=== PATIENT | female | born 1985 | race Caucasian/White ===

== ENCOUNTER → 2016-06-02 | Outpatient (REF) | payer BC, OTHER ==
[~2016-06-02] MED LIST: /ANUSHCSU PR; ACET50TA PO; DOCU10ELUD PO; IBUP600T26 PO; MOM30SS PO; PRENTAB74 PO
[2016-06-02 13:38] LABS: MEAN CORPUSCULAR HEMOGLOBIN 29.7 pg (27.0-33.0); MEAN CORPUSCULAR HGB CONC 33.5 g/dl (32.0-36.5); MEAN CORPUSCULAR VOLUME 88.7 fl (80.0-96.0); RED CELL DISTRIBUTION WIDTH 12.1 % (11.5-14.5); WHITE BLOOD COUNT 8.3 K/mm3 (4.0-10.0)
[2016-06-02 13:59] LABS: ALBUMIN 3.8 GM/DL (3.2-5.2); ALBUMIN/GLOBULIN RATIO 1.19 (1.00-1.93); ALKALINE PHOSPHATASE 71 U/L (45-117); ALT/SGPT 55 U/L (12-78); ANION GAP 8 MEQ/L (8-16); AST/SGOT 29 U/L (15-37); BILIRUBIN,TOTAL 1.2 MG/DL (0.2-1.0); BLOOD UREA NITROGEN 13 MG/DL (7-18); CALCIUM LEVEL 9.3 MG/DL (8.5-10.1); CARBON DIOXIDE LEVEL 26 MEQ/L (21-32); CHLORIDE LEVEL 104 MEQ/L (98-107); CHOLESTEROL LEVEL 170 MG/DL (<200); CREATININE FOR GFR 0.75 MG/DL (0.55-1.02); FREE T4 0.99 NG/DL (0.76-1.46); GLOMERULAR FILTRATION RATE > 60.0 (>60); GLUCOSE, FASTING 82 MG/DL (70-105); POTASSIUM SERUM 4.5 MEQ/L (3.5-5.1); SODIUM LEVEL 138 MEQ/L (136-145); TRIGLYCERIDES LEVEL 83 MG/DL (<150)
== END ==
LOC: M LAB REF 13:01
PROVIDERS: ATTEND Advanced Practice Midwife
DX: Z01.419 Encounter for gynecological examination (general) (routine) without abnormal findings (principal)

== ENCOUNTER → 2016-10-03 | Outpatient (REF) | payer BC ==
[2016-10-03 14:49] LABS: MEAN CORPUSCULAR HGB CONC 33.6 g/dl (32.0-36.5); MEAN CORPUSCULAR VOLUME 89.1 fl (80.0-96.0); RED CELL DISTRIBUTION WIDTH 12.2 % (11.5-14.5); WHITE BLOOD COUNT 11.8 K/mm3 (4.0-10.0)
[2016-10-03 15:22] LABS: HCG, SERUM QUANTITATIVE 8212 MIU/ML
== END ==
LOC: M LAB REF 13:25
PROVIDERS: ATTEND Advanced Practice Midwife
DX: Z32.01 Encounter for pregnancy test, result positive (principal)

== ENCOUNTER → 2017-03-20 | Outpatient (CLI) | payer BC ==
[2017-03-20 11:16] LABS: HEMATOCRIT 33.1 % (36.0-47.0); HEMOGLOBIN 10.7 g/dl (12.0-16.0); MEAN CORPUSCULAR HEMOGLOBIN 28.8 pg (27.0-33.0); MEAN CORPUSCULAR HGB CONC 32.3 g/dl (32.0-36.5); MEAN CORPUSCULAR VOLUME 89.2 fl (80.0-96.0); PLATELET COUNT, AUTOMATED 289 10^3/uL (150-450); RED BLOOD COUNT 3.71 10^6/uL (4.00-5.40); RED CELL DISTRIBUTION WIDTH 13.4 % (11.5-14.5); WHITE BLOOD COUNT 11.7 10^3/uL (4.0-10.0)
[2017-03-20 11:34] LABS: GLUCOSE CHALLENGE TEST 1 HOUR 142 MG/DL (LESS THAN 140)
== END ==
LOC: M LAB 09:41
DX: Z34.82 Encounter for supervision of other normal pregnancy, second trimester (principal); Z3A.25 25 weeks gestation of pregnancy
CPT/HCPCS: 82950

== ENCOUNTER → 2017-03-26 | Outpatient (CLI) | payer BC ==
[2017-03-26 09:49] LABS: GLUCOSE, FASTING 82 MG/DL (LESS THAN 95)
[2017-03-26 10:45] LABS: 1 HR GLUCOSE 133 MG/DL (LESS THAN 180)
[2017-03-26 11:37] LABS: 2 HR GLUCOSE 132 MG/DL (LESS THAN 155)
[2017-03-26 12:52] LABS: 3 HR GLUCOSE 126 MG/DL (LESS THAN 140)
== END ==
LOC: M LAB 08:25
DX: Z34.83 Encounter for supervision of other normal pregnancy, third trimester (principal); Z3A.29 29 weeks gestation of pregnancy; Z36.89 Encounter for other specified antenatal screening
CPT/HCPCS: 82951

== ENCOUNTER → 2017-05-03 | Outpatient (REF) | payer BC | LOC: M LAB REF 13:06 | DX: Z34.83 Encounter for supervision of other normal pregnancy, third trimester (principal); Z3A.35 35 weeks gestation of pregnancy | CPT/HCPCS: 87081 ==

== ENCOUNTER → 2017-10-01 | Outpatient (REF) | payer BC ==
[2017-10-01 13:18] LABS: HEMATOCRIT 36.1 % (36.0-47.0); HEMOGLOBIN 11.7 g/dl (12.0-15.5); MEAN CORPUSCULAR HEMOGLOBIN 27.4 pg (27.0-33.0); MEAN CORPUSCULAR HGB CONC 32.4 g/dl (32.0-36.5); MEAN CORPUSCULAR VOLUME 84.5 fl (80.0-96.0); PLATELET COUNT, AUTOMATED 374 10^3/uL (150-450); RED BLOOD COUNT 4.27 10^6/uL (4.00-5.40); RED CELL DISTRIBUTION WIDTH 14.6 % (11.5-14.5); WHITE BLOOD COUNT 9.6 10^3/uL (4.0-10.0)
[2017-10-01 14:22] LABS: RUBELLA IgG QUALITATIVE IMMUNE (IMMUNE)
[2017-10-01 14:23] LABS: HBsAg Prenatal NEGATIVE (NEGATIVE)
[2017-10-01 14:51] LABS: HEPATITIS C VIRUS ABY INDEX 0.1 INDEX (<0.8)
[2017-10-01 14:51] LABS: HIV 1&2 SCREEN CENTAUR NEGATIVE (NEGATIVE)
[2017-10-01 16:25] LABS: HCG, SERUM QUANTITATIVE 21014 MIU/ML
== END ==
LOC: M LAB REF 12:52
DX: Z32.01 Encounter for pregnancy test, result positive (principal)

== ENCOUNTER → 2017-11-05 | Outpatient (REF) | payer BC ==
[2017-11-05 15:08] LABS: CHLAMYDIA DNA AMPLIFICATION NEGATIVE (NEGATIVE); GC DNA AMPLIFICATION NEGATIVE (NEGATIVE)
== END ==
LOC: M LAB REF 13:13
DX: Z34.81 Encounter for supervision of other normal pregnancy, first trimester (principal)
CPT/HCPCS: 87086

== ENCOUNTER → 2018-03-11 | Outpatient (CLI) | payer BC ==
[~2018-03-11] MED LIST changes: +MOTR200T44 PO; +PRENTAB31 PO; +TYLE325T5 PO
[2018-03-11 10:56] LABS: HEMATOCRIT 32.1 % (36.0-47.0); HEMOGLOBIN 10.1 g/dl (12.0-15.5); MEAN CORPUSCULAR HEMOGLOBIN 26.9 pg (27.0-33.0); MEAN CORPUSCULAR HGB CONC 31.5 g/dl (32.0-36.5); MEAN CORPUSCULAR VOLUME 85.4 fl (80.0-96.0); PLATELET COUNT, AUTOMATED 294 10^3/uL (150-450); RED BLOOD COUNT 3.76 10^6/uL (4.00-5.40); WHITE BLOOD COUNT 10.9 10^3/uL (4.0-10.0)
== END ==
LOC: M LAB 09:10
PROVIDERS: ATTEND Obstetrics & Gynecology
DX: Z34.82 Encounter for supervision of other normal pregnancy, second trimester (principal)

== ENCOUNTER → 2018-03-18 | Outpatient (CLI) | payer BC | LOC: M LAB 07:58 | PROVIDERS: ATTEND Obstetrics & Gynecology | DX: R73.02 Impaired glucose tolerance (oral) (principal) ==

== ENCOUNTER → 2018-04-30 | Outpatient (REF) | payer BC | LOC: M LAB REF 13:30 | PROVIDERS: ATTEND Obstetrics & Gynecology | DX: Z34.83 Encounter for supervision of other normal pregnancy, third trimester (principal); Z3A.00 Weeks of gestation of pregnancy not specified ==

== ENCOUNTER → 2020-06-29 | Outpatient (CLI) | payer BC ==
[~2020-06-29] MED LIST changes: -/ANUSHCSU PR; -ACET50TA PO; -DOCU10ELUD PO; +DOCU5LIQ PO; +HYDR1SUP3 PR; +IBUP-1114 PO; +MAPA500T17 PO; +MAPA500T2 PO
[2020-06-29 17:40] LABS: HEPATITIS B SURFACE ANTIBODY POSITIVE (POSITIVE)
[2020-07-01 15:08] LABS: HERPES ZOSTER, VARICELLA IgG 635 index (Immune >165); HERPES ZOSTER, VARICELLA IgM <0.91 index (0.00-0.90); MUMPS VIRUS IgG ANTIBODY 89.8 AU/mL (Immune >10.9)
== END ==
LOC: M WUC 13:27
PROVIDERS: ATTEND Nurse Practitioner Family
DX: Z02.1 Encounter for pre-employment examination (principal)

== ENCOUNTER → 2021-12-02 | Outpatient (REF) | payer OTHER | LOC: M PLALAB 15:13 | PROVIDERS: ATTEND Specialist | DX: Z01.419 Encounter for gynecological examination (general) (routine) without abnormal findings (principal) ==

== ENCOUNTER → 2023-07-10 | Outpatient (REF) | payer OTHER | LOC: M SFHCWAGY 12:27 | PROVIDERS: ATTEND Specialist | DX: Z12.4 Encounter for screening for malignant neoplasm of cervix (principal) | CPT/HCPCS: 87624; G0123 ==

== ENCOUNTER → 2024-04-14 | Outpatient (REF) | payer OTHER ==
[2024-04-14 17:31] LABS: HEMATOCRIT 42.5 % (36.0-47.0); HEMOGLOBIN 13.6 g/dl (12.0-15.5); MEAN CORPUSCULAR HEMOGLOBIN 28.6 pg (27.0-33.0); MEAN CORPUSCULAR VOLUME 89.3 fl (80.0-96.0); PLATELET COUNT, AUTOMATED 414 10^3/uL (150-450); RED BLOOD COUNT 4.76 10^6/uL (4.00-5.40); WHITE BLOOD COUNT 9.1 10^3/uL (4.0-10.0)
[2024-04-14 17:37] LABS: ALBUMIN 3.9 G/DL (3.2-5.2); ALKALINE PHOSPHATASE 74 U/L (35-104); ALT/SGPT 28 U/L (7.0-40); AST/SGOT 21 U/L (<34); BILIRUBIN,TOTAL 1.4 MG/DL (0.3-1.2); BLOOD UREA NITROGEN 7 MG/DL (9-23); CALCIUM LEVEL 9.3 MG/DL (8.5-10.1); CARBON DIOXIDE LEVEL 28 MMOL/L (20-31); CHLORIDE LEVEL 105 MMOL/L (98-107); CHOLESTEROL LEVEL 205 MG/DL (<200); CHOLESTEROL RISK RATIO 4.69 (<5); GLOMERULAR FILTRATION RATE > 60.0 (>60); GLUCOSE, FASTING 87 MG/DL (60-100); HDL CHOLESTEROL 43.7 MG/DL (>40); LDL CHOLESTEROL 134.1 MG/DL (<100); NON-HDL-C 161.3 MG/DL; POTASSIUM SERUM 4.4 MMOL/L (3.5-5.1); SODIUM LEVEL 143 MMOL/L (136-145); THYROID STIMULATING HORMONE 1.803 uIU/ML (0.55-4.78); TOTAL PROTEIN 7.5 G/DL (5.7-8.2); TRIGLYCERIDES LEVEL 136 MG/DL (<150)
[2024-04-14 17:39] LABS: TOTAL 25(OH) VITAMIN D 14.2 NG/ML (20.0-100.0)
[2024-04-14 18:33] LABS: HEMOGLOBIN A1c 5.2 % (4.0-6.0)
== END ==
LOC: M LAB REF 16:18
PROVIDERS: ATTEND Student in an Organized Health Care Education/Training Program
DX: Z00.01 Encounter for general adult medical examination with abnormal findings (principal)

== ENCOUNTER → 2024-06-11 | Outpatient (CLI) | payer OTHER | LOC: M EKG 16:09 | PROVIDERS: ATTEND Student in an Organized Health Care Education/Training Program | DX: R00.2 Palpitations (principal) ==

== ENCOUNTER → 2024-08-25 | Outpatient (REF) | payer OTHER ==
[2024-08-25 16:30] LABS: ALT/SGPT 36.0 U/L (7.0-40); AST/SGOT 30.0 U/L (<34); CALCIUM LEVEL 10.0 MG/DL (8.5-10.1); CARBON DIOXIDE LEVEL 27.0 MMOL/L (20-31); CHLORIDE LEVEL 104.0 MMOL/L (98-107); CREATININE FOR GFR 0.88 MG/DL (0.55-1.30); GLOMERULAR FILTRATION RATE 85.2 (>58); POTASSIUM SERUM 4.6 MMOL/L (3.5-5.1); SODIUM LEVEL 140.0 MMOL/L (136-145)
== END ==
LOC: M LAB REF 14:43
PROVIDERS: ATTEND Student in an Organized Health Care Education/Training Program
DX: R17 Unspecified jaundice (principal)